=== PATIENT | female | born 2005 | race Caucasian/White ===

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

== ENCOUNTER 2024-07-02 13:54 | Emergency (ER) | payer OTHER, SELFPAY ==
[2024-07-02 13:55] VITALS: BP 118/66; PULSE 69; RESP 14; TEMP 36.6; O2SAT 100; BMI 22.8
--- NOTE | 2024-07-02 14:11 | US_ITS ---
EXAM: US Pelvis Transabdominal and Transvaginal, Complete CLINICAL INDICATION: POST , ABNORMAL VAGINAL DISCHARGE TECHNIQUE: Real-time complete transabdominal and transvaginal pelvic ultrasound with image documentation. Transvaginal imaging was used for better evaluation of the endometrium and adnexa. COMPARISON: No relevant prior studies available. FINDINGS: UTERUS/CERVIX: Endometrium is heterogeneous and irregular. Retained product of conception can not be excluded. Clinical correlation is recommended. The uterus measures 9.4 x 4.9 x 3.9 cm. RIGHT OVARY: Unremarkable. Normal blood flow. The right ovary measures 2.8 x 3.3 x 1.8 cm. LEFT OVARY: Unremarkable. Normal blood flow. The left ovary measures 2.7 x 1.9 x 1.1 cm. FREE FLUID: No free fluid. BLADDER: Unremarkable as visualized. Wall is normal thickness for degree of distention. VASCULATURE: Increased vascularity within the myometrium could be changes. US/Transvaginal Non- IMPRESSION: 1. Endometrium is heterogeneous and irregular. Retained product of conception can not be excluded. Clinical correlation is recommended. 2. Increased vascularity within the myometrium could be changes. Reading Location: [id number]
--- NOTE | 2024-07-02 14:34 | EDS_ITS ---
HPI <NADEGE Reilly - Last Filed: 07/02/24 17:07> HPI - Female History of Present Illness Chief Complaint: Vag Bleeding Narrative Narrative: Patient resenting today due to concerns for abnormal vaginal discharge she has had over the last several days. She reports that about 1 month ago she took misoprostol to induce an , she was around 6 weeks at that time. She is G2, P0 with previous history of miscarriage. She got this medication off of an online clinic. She reports that she passed blood and what appeared to be tissue like discharge after taking the pills. Her bleeding stopped for about a week and then over the last several days she developed pink/red-colored vaginal discharge with small clots. She reports that this bleeding is different than her usual periods prompting her to come in to be seen. She denies any fevers or chills, she reports mild pelvic cramping but reports feeling well otherwise. PFSH <NADEGE Reilly - Last Filed: 07/02/24 17:07> PFS Medical History Anxiety Depression Home Medications ?Medication ?Instructions ?Recorded ?Last Taken ?Type NK 07/02/24 Unknown History Allergy/AdvReac Type Severity Reaction Status Date / Time acetaminophen (From NyQuil) Allergy Mild Other Verified 07/02/24 13:59 chlorpheniramine (From Vicks Allergy Mild Other Verified 07/02/24 13:59 DayQuil) dextromethorphan (From Allergy Mild Other Verified 07/02/24 13:59 NyQuil) doxylamine (From NyQuil) Allergy Mild Other Verified 07/02/24 13:59 guaifenesin (From Vicks Allergy Mild Other Verified 07/02/24 13:59 DayQuil) phenylpropanolamine (From Allergy Mild Other Verified 07/02/24 13:59 Vicks DayQuil) pseudoephedrine (From NyQuil) Allergy Mild Other Verified 07/02/24 13:59 Social History housing: house Smoking Status: Never smoker ROS <NADEGE Reilly - Last Filed: 07/02/24 17:07> ROS ED Constitutional Constitutional ED: Denies chills or fever(s) Cardiovascular Cardiovascular: Denies chest pain Respiratory/Chest Respiratory/Chest: Denies dyspnea Gastrointestinal Gastrointestinal: Denies abdominal pain, nausea or vomiting Genitourinary Genitourinary ED: Reports other Details: Pelvic cramping, vaginal discharge ; Denies dysuria, hematuria or urinary urgency Musculoskeletal Musculoskeletal: Denies arthralgias or myalgias Neurologic Neurologic: Denies weakness EXAM <NADEGE Reilly - Last Filed: 07/02/24 17:07> Physical Exam Const Vital Signs: 07/02/24 13:55 07/02/24 15:55 07/02/24 16:06 Temperature 97.9 F 98.3 F Temperature Source Oral Pulse Rate 69 72 72 Respiratory Rate 14 18 18 Blood Pressure 118/66 108/73 108/73 Blood Pressure Mean 83 84 84 Pulse Ox 100 98 98 Positive well nourished, well developed and no apparent distress General Appearance ED: well developed HEENT Reports normocephalic and head/scalp atraumatic Mouth ED: Yes moist mucous membranes normal Eyes PERRL and EOMs intact bilaterally Neck full ROM and supple Chest Wall inspection of chest normal Resp normal respiratory effort and clear to auscultation bilaterally Cardio regular rate and regular rhythm GI soft to palpation, non-distended and no masses GI Narrative: Minimal suprapubic tenderness to palpation, no rigidity or guarding Back/Spine normal ROM and normal to inspection Extremity normal to inspection and full ROM Neuro oriented x3, CN's II-XII intact bilaterally, moves all extremities, no focal motor deficits and no sensory deficits noted Sensorium / Orientation: awake and alert Psych mental status grossly normal and thought process normal Skin no rashes or lesions noted and no wounds <Maycol Goode MD - Last Filed: 07/06/24 08:58> Physical Exam Const Vital Signs: 07/02/24 13:55 07/02/24 15:55 07/02/24 16:06 Temperature 97.9 F 98.3 F Temperature Source Oral Pulse Rate 69 72 72 Respiratory Rate 14 18 18 Blood Pressure 118/66 108/73 108/73 Blood Pressure Mean 83 84 84 Pulse Ox 100 98 98 MDM <NADEGE Reilly - Last Filed: 07/02/24 17:07> MDM MDM Narrative Medical decision making narrative: Patient presenting today due to concerns for abnormal vaginal discharge she has had over the last several days. She took misoprostol about 1 month ago to induce a when she was about 6 weeks . She did have intermittent vaginal discharge/bleeding afterwards that eventually subsided. Over the last several days she has had mild vaginal bleeding, not enough to soak through a pad or tampon, she reports that it is more spotting and she only has to change her tampon about 2 times per day. Given concerns for retained products of conception, transvaginal ultrasound will be obtained as well as labs. CBC reveals a mild leukocytosis at 12.2, her BMP is unremarkable, she is O- blood type. Serum hCG is negative. Transvaginal ultrasound shows an irregular and heterogeneous endometrium, retained products of conception cannot be excluded. I did speak with Dr. Foster, OB, she reports that because her serum hCG is negative this is likely her menstrual period rather than retained products. She recommended having patient follow-up in the office early next week and they will determine if a D&C is indicated. On reexamination patient is doing well. Return instructions were discussed with her and she will be discharged home in stable condition to follow-up with OB. She is comfortable with this plan. Lab Data Attestation: I reviewed the patient's lab results. Labs: Laboratory Results - last 24 hr 07/02/24 14:21 WBC 12.2 H RBC 4.26 Hgb 13.5 Hct 41.3 MCV 96.9 MCH 31.7 MCHC 32.7 RDW Std Deviation 45.1 H RDW Coeff of Cher 12.7 Plt Count 203 MPV 11.1 Immature Gran % (Auto) 0.200 Neut % (Auto) 63.1 Lymph % (Auto) 24.4 Rhea % (Auto) 7.0 Eos % (Auto) 4.2 Baso % (Auto) 1.1 H Absolute Neuts (auto) 7.7 Absolute Lymphs (auto) 2.99 Nucleated RBC % 0 Platelet Estimate A Sodium 143 Potassium 4.4 Chloride 110 H Carbon Dioxide 21.3 Anion Gap 11 BUN 8 Creatinine 0.78 Estim Creat Clear Calc 99.35 Est GFR (MDRD) Non-Af 112 BUN/Creatinine Ratio 10.7 Glucose 80 Calcium 9.2 Serum , Qual NEGATIVE Blood Type O NEGATIVE Antibody Screen NEGATIVE Radiography Diagnostic Testing: Clinical Impression(s) from Imaging Studies Transvaginal US 07/02/24 14:11 IMPRESSION: 1. Endometrium is heterogeneous and irregular. Retained product of conception can not be excluded. Clinical correlation is recommended. 2. Increased vascularity within the myometrium could be changes. Reading Location: [facility] <Maycol Goode MD - Last Filed: 07/06/24 08:58> [facility] Lab Data Labs: Laboratory Results - last 24 hr 07/02/24 14:21 WBC 12.2 H RBC 4.26 Hgb 13.5 Hct 41.3 MCV 96.9 MCH 31.7 MCHC 32.7 RDW Std Deviation 45.1 H RDW Coeff of Cher 12.7 Plt Count 203 MPV 11.1 Immature Gran % (Auto) 0.200 Neut % (Auto) 63.1 Lymph % (Auto) 24.4 Rhea % (Auto) 7.0 Eos % (Auto) 4.2 Baso % (Auto) 1.1 H Absolute Neuts (auto) 7.7 Absolute Lymphs (auto) 2.99 Nucleated RBC % 0 Platelet Estimate A Sodium 143 Potassium 4.4 Chloride 110 H Carbon Dioxide 21.3 Anion Gap 11 BUN 8 Creatinine 0.78 Estim Creat Clear Calc 99.35 Est GFR (MDRD) Non-Af 112 BUN/Creatinine Ratio 10.7 Glucose 80 Calcium 9.2 Serum , Qual NEGATIVE Blood Type O NEGATIVE Antibody Screen NEGATIVE Radiography Diagnostic Testing: Clinical Impression(s) from Imaging Studies Transvaginal US 07/02/24 14:11 IMPRESSION: 1. Endometrium is heterogeneous and irregular. Retained product of conception can not be excluded. Clinical correlation is recommended. 2. Increased vascularity within the myometrium could be changes. Reading Location: [facility] Treatment and Re-Evaluation Narrative: Dr. Goode: I have personally performed a face to face assessment of the patient and have reviewed the SAVITA Note. I performed a substantive portion of the visit including all aspects of the following. My reid findings include: History is patient took medication a few weeks ago to terminate . Presents with vaginal bleeding. Exam is afebrile. Vital signs noted. Nontoxic-appearing. Cardiovascular examination regular rate and rhythm. Lungs clear to auscultation bilaterally. Abdomen soft, nontender, without guarding or rebound. No pallor of skin. Medical Decision Making: Check labs. Check ultrasound. Discussed with obstetrics/gynecology regarding ultrasound results. Follow-up OB. Discharge. Other additions or changes: [None] Discharge Plan Triage Chief Complaint: Vag Bleeding ED Midlevel Provider: Lizzette Garcia ED Provider: Maycol Goode Dx/Rx/DC Orders Clinical Impression: Abnormal vaginal bleeding, Induced Instructions: ED Dysfunctional Uterine Bleeding Prescriptions: No Action NK Primary Care Provider: Shobha Salguero NP Referrals: Vicky Foster MD [Med Staff - Active Staff] - 3-5 Days Shobha Salguero NP, [employer] [Primary Care Provider] - Activity Restrictions/Additional Instructions: Please follow-up with OB, call the office on Thursday to be seen. Return for any worsening or concerning symptoms. Return for any fevers or chills. Print Language: Portuguese Disposition Disposition: Home, Self Care Discharge Date/Time: 07/02/24 16:15
[2024-07-02 14:51] LABS: Absolute Lymphocyte Count 2.99 X10^3/uL (0.83-4.51); Absolute Neutrophil Count 7.7 X10^3/uL (2.0-7.7); Basophil# 0.14 X10^3/uL; Basophil% 1.1 % (0-1); Eosinophil# 0.51 X10^3/uL; Eosinophils% 4.2 % (0-5); Hematocrit 41.3 % (37-47); Hemoglobin 13.5 g/dL (12.0-15.0); Lymphocyte # 2.99 X10^3/ul (0.83-4.51); Lymphocyte % 24.4 % (19-41); Mean Corp Hgb Conc 32.7 g/dL (32-36); Mean Corpuscular Hgb 31.7 pg (27.0-32.0); Mean Corpuscular Volume 96.9 fL (81-99); Mean Platelet Vol. 11.1 fl (6.2-12.0); Monocyte# 0.85 X10^3/uL; NRBC Flagged by Analyzer 0 % (0-5); Neutrophil # 7.71 X10^3/uL (2.7-7.7); Neutrophil % 63.1 % (47-70); POSITIVE COUNT YES; Platelet Count 203 K/mm3 (150-450); RBC Distribution Width CV 12.7 % (11.6-14.6); RBC Distribution Width SD 45.1 fl (35.1-43.9); Red Blood Count 4.26 M/mm3 (4.2-5.4); White Blood Count 12.2 K/mm3 (4.4-11.0)
[2024-07-02 15:20] LABS: Internal QC Validated? YES +Cl - CLEAR BKGD; Pregnancy, Serum, hCG Quali. NEGATIVE Negative
[2024-07-02 15:31] LABS: Anion Gap 11 (5-15); BUN 8 mg/dL (4-19); BUN/Creat Ratio 10.7 RATIO (10-20); Calcium,Total 9.2 mg/dL (7.6-11.0); Carbon Dioxide 21.3 mmol/L (21.0-32.0); Chloride 110 mmol/L (98-108); Creatinine, Serum 0.78 mg/dL (0.70-1.20); EST Glomerular Filtration Rate 112 (>60); Estimated Creatinine Clearance 99.35 ml/min (50-250); Glucose 80 mg/dL (70-99); Potassium 4.4 mmol/L (3.3-5.1); Sodium Level 143 mmol/L (133-145)
[2024-07-02 15:32] LABS: Differential Indicated SCAN CRITERIA MET; Platelet Estimate A (ADEQ)
[2024-07-02 15:55] VITALS: BP 108/73; PULSE 72; RESP 18; O2SAT 98
[2024-07-02 16:06] VITALS: BP 108/73; PULSE 72; RESP 18; TEMP 36.8; O2SAT 98
== END 2024-07-02 16:15 | disposition home or self-care (01) ==
PROVIDERS: Physician Assistant; Emergency Provider Emergency Medicine; PCP Nurse Practitioner Family; Referring Provider Emergency Medicine; Visit Provider Emergency Medicine
DX: N93.9 Abnormal uterine and vaginal bleeding, unspecified (principal); Z87.59 Personal history of other complications of pregnancy, childbirth and the puerperium
CPT/HCPCS: 76830; 80048; 84703; 85025; 86850; 86900; 86901; 99282; A4216